=== PATIENT | male | born 2000 | race Caucasian/White ===

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

== ENCOUNTER 2024-06-05 18:01 | Emergency (ER) | payer OTHER ==
[~2024-06-05] VITALS: Ht 177.8 cm; Wt 68.9 kg
[2024-06-05 19:59] VITALS: BP 119/73
== END 2024-06-05 19:59 | disposition home or self-care (01) ==
LOC: ED 18:01
DX: S93.402A Sprain of unspecified ligament of left ankle, initial encounter (principal); Z88.0 Allergy status to penicillin; X50.1XXA Overexertion from prolonged static or awkward postures, initial encounter; Y93.67 Activity, basketball
CPT/HCPCS: 73610; 99283